=== PATIENT | female | born 1965 | race Caucasian/White ===

== ENCOUNTER 2016-08-12 16:33 | Emergency (ER) | payer BC, OTHER ==
--- NOTE | 2016-08-12 17:09 | EDM.PDOC ---
ED HPI Skin/Rash - General Chief Complaint: Skin Complaint Stated Complaint: BITE OR INFECTION LT LEG Time Seen by Provider: 08/12/16 16:50 Source: Reports: Patient History Limitations: Reports: No limitations - History of Present Illness INITIAL COMMENTS - FREE TEXT/NARRATIVE: HISTORY AND PHYSICAL: History of present illness: Patient is a 50-year-old female presents to the emergency department concerned about possible spider bite. A few days ago she developed a small pustule on the left inner thigh that she thought was from rubbing on her pants and she thought that it went away but just medial to that she developed another little sore but now has progressed and had increased redness and tenderness. She is worried because she states she had a friend that was bitten by a brown recluse and had to have skin cut out etc. She has not had fevers or chills. She denies nausea or vomiting. She denies any specific injury to the skin. No pain down her legs. Her symptoms are very focal and localized to the left inner thigh. Review of systems: As per history of present illness and below otherwise all systems reviewed and negative. Past medical history: As per history of present illness and as reviewed below otherwise noncontributory. Surgical history: As per history of present illness and as reviewed below otherwise noncontributory. Social history: No reported history of drug or alcohol abuse. Family history: As per history of present illness and as reviewed below otherwise noncontributory. Physical exam: HEENT: Atraumatic, normocephalic. Lungs: Clear to auscultation, respiratory distress. Heart: Regular rate and rhythm. Abdomen: Soft, nondistended, nontender. Extremities: Normal range of motion of the lower extremities. On the left inner thigh she has a small lesion with a little bit of induration around this and then a much larger area of cellulitis surrounding this. The whole diameter is approximately 8-10 cm. There is no abscess formation, no drainage. It is warm and tender to the touch. Straight seen. Neuro: Awake, alert, oriented. Therapeutics: Patient given a prescription for Bactrim Impression: Cellulitis Plan: Wound was demarcated and patient was instructed to return after 48 hours if her symptoms are not improving or worsening. Otherwise she was instructed to continue taking antibiotics and following up with primary care as needed. She does not seem to have any questions or concerns about when and where to followup and what to watch for. Definitive disposition and diagnosis as appropriate pending reevaluation and review of above. - Related Data Allergies Allergy/AdvReac Type Severity Reaction Status Date / Time Untyped Platelets Allergy Anaphylactic Uncoded 08/12/16 16:49 Shock Home Meds: Ambulatory Orders Medication Instructions Recorded Confirmed . 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 ED EXAM, SKIN/RASH Exam: See Below (See HPI) Course - Vital Signs Last Recorded V/S: Last Vital Signs Temp 37.6 C 08/12/16 16:50 Pulse 108 H 08/12/16 16:50 Resp 18 08/12/16 16:50 BP 132/66 08/12/16 16:50 Pulse Ox 97 08/12/16 16:50 Departure - Departure Time of Disposition: 17:08 Disposition: Home, Self-Care 01 Condition: good Clinical Impression: Cellulitis Qualifiers: Site of cellulitis: extremity Site of cellulitis of extremity: lower extremity Laterality: left Qualified Code(s): L03.116 - Cellulitis of left lower limb Instructions: Cellulitis, Adult Referrals: PCP,None [Primary Care Provider] - Forms: ED Department Discharge Additional Instructions: The following information is given to patients seen in the emergency department who are being discharged to home. This information is to outline your options for follow-up care. We provide all patients seen in our emergency department with a follow-up referral. The need for follow-up, as well as the timing and circumstances, are variable depending upon the specifics of your emergency department visit. If you don't have a primary care physician on staff, we will provide you with a referral. We always advise you to contact your personal physician following an emergency department visit to inform them of the circumstance of the visit and for follow-up with them and/or the need for any referrals to a consulting specialist. The emergency department will also refer you to a specialist when appropriate. This referral assures that you have the opportunity for follow-up care with a specialist. All of these measure are taken in an effort to provide you with optimal care, which includes your follow-up. Under all circumstances we always encourage you to contact your private physician who remains a resource for coordinating your care. When calling for follow-up care, please make the office aware that this follow-up is from your recent emergency room visit. If for any reason you are refused follow-up, please contact the [facility] Emergency Department at and asked to speak to the emergency department charge nurse. Return to the ED in 48 hours if her symptoms are worsening or not improving, otherwise followup with your doctor as needed and continue antibiotic medication until completely gone.
== END 2016-08-12 17:27 | disposition home or self-care (01) ==
LOC: MW.ED 16:33
CPT/HCPCS: 99283

== ENCOUNTER 2016-08-18 09:28 | Inpatient (IN) | payer BC ==
[2016-08-18] MEDS ORDERED: Sodium Chloride 0.9% 1,000 ML IV ONE ×2 (09:44→11:03)
[2016-08-18] MEDS ORDERED: cefTRIAXone 1 GM in Premix Bag 1 BAG IV ONE (09:49)
--- NOTE | 2016-08-18 10:02 | EDM.PDOC ---
ED HPI Skin/Rash - General Chief Complaint: Fever Stated Complaint: LT LEG RED AND SOLLOWEN Time Seen by Provider: 08/18/16 09:35 - History of Present Illness INITIAL COMMENTS - FREE TEXT/NARRATIVE: History of present illness: [50-year-old female seen in ED last for left upper thigh cellulitis where she was prescribed bactrim. She started developing fevers, chills for last two days. She does not say if the cellulitis is improved or worsened. First few days she states it improved on bactrim but stayed the same. She has non productive cough, runny nose, myalgias headache. She does not have n/v/d, abdominal pain, She felt febrile last few days but last night with a temperature 103 degrees. ] Review of systems: As per history of present illness and below otherwise all systems reviewed and negative. Past medical history: As per history of present illness and as reviewed below otherwise noncontributory. Surgical history: As per history of present illness and as reviewed below otherwise noncontributory. Social history: No reported history of drug or alcohol abuse. Family history: As per history of present illness and as reviewed below otherwise noncontributory. Physical exam: General: Well developed, well nourished in NAD HEENT: Atraumatic, normocephalic, pupils reactive, negative for conjunctival pallor or scleral icterus, mucous membranes moist, throat clear, neck supple, nontender, trachea midline. Lungs: Clear to auscultation, breath sounds equal bilaterally, chest nontender. Heart: S1S2, tachycardia, negative for clicks, rubs, or JVD. Abdomen: Soft, nondistended, nontender. Negative for masses or hepatosplenomegaly. Negative for costovertebral tenderness. Pelvis: Stable nontender. Genitourinary: Deferred. Rectal: Deferred. Extremities: Atraumatic, negative for cords or calf pain. Neurovascular unremarkable. Neuro: Awake, alert, oriented. Cranial nerves II through XII unremarkable. Cerebellum unremarkable. Motor and sensory unremarkable throughout. Exam nonfocal. SKIN: Left upper thigh: Medial Aspect: 6X6 cm circular erythemtous macular rash without warmth, edema/ Diagnostics: CBC: leucopenia, CMP, lactate 0.8, blood cultures x2] Therapeutics: [Vancomycin] Impression: Fever Failed outpatient therapy for cellulitis vs viral illness mild reaction to vanomycin She had as slight rash on her anterior chest from vancomycin: decreased the infusion rate and i.v solumedrol and i.v benadryl given. Plan: [Admit to ICU for the antibiotics, CBC and IVF: Dr. Nugent accepted the patient.] Definitive disposition and diagnosis as appropriate pending reevaluation and review of above. 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) Other OB/BYN History: HELLP Social & Family History - Family History Family Medical History: Noncontributory - Tobacco Use Smoking Status *Q: Current Every Day Smoker Years of Tobacco use: 25 Packs/Tins Daily: 0.5 Second Hand Smoke Exposure: No - Recreational Drug Use Recreational Drug Use: No ED ROS GENERAL - Review of Systems Review Of Systems: See Below ED EXAM, SKIN/RASH Exam: See Below (See history of present illness) Course - Vital Signs Last Recorded V/S: Last Vital Signs Temp 101.8 F H 08/18/16 10:41 Pulse 106 H 08/18/16 10:41 Resp 16 08/18/16 10:41 BP 119/79 08/18/16 10:41 Pulse Ox 96 08/18/16 10:41 - Orders/Labs/Meds Orders: Active Orders 24 hr Category Date Time Status CULTURE BLOOD [BC] Stat Lab 08/18/16 09:53 Received CULTURE BLOOD [BC] Stat Lab 08/18/16 09:57 Received UA W/MICROSCOPIC [URIN] Stat Lab 08/18/16 11:24 Ordered Sodium Chloride 0.9% [Normal Saline] 1,000 ml Med 08/18/16 11:03 Active IV .Bolus Blood Culture x2 Reflex Set [OM.PC] Stat Oth 08/18/16 09:43 Ordered Medication Orders Sodium Chloride (Normal Saline) 1,000 mls @ 999 mls/hr IV .Bolus ONE Stop: 08/18/16 12:03 Labs: Laboratory Tests 08/18/16 08/18/16 08/18/16 Range/Units 09:53 09:53 09:53 WBC 2.32 L (4.0-11.0) K/uL RBC 4.98 (4.30-5.90) M/uL Hgb 14.8 (12.0-16.0) g/dL Hct 43.7 (36.0-46.0) % MCV 87.8 (80.0-98.0) fL MCH 29.7 (27.0-32.0) pg MCHC 33.9 (31.0-37.0) g/dL RDW Std Deviation 42.5 (28.0-62.0) fl RDW Coeff of Fern 13 (11.0-15.0) % Plt Count 159 (150-400) K/uL MPV 9.60 (7.40-12.00) fL Neut % (Auto) 75.8 (48.0-80.0) % Lymph % (Auto) 17.2 (16.0-40.0) % [place] % (Auto) 5.2 (0.0-15.0) % Eos % (Auto) 0.9 (0.0-7.0) % Baso % (Auto) 0.9 (0.0-1.5) % Neut # (Auto) 1.8 (1.4-5.7) K/uL Lymph # (Auto) 0.4 L (0.6-2.4) K/uL [place] # (Auto) 0.1 (0.0-0.8) K/uL Eos # (Auto) 0.0 (0.0-0.7) K/uL Baso # (Auto) 0.0 (0.0-0.1) K/uL Nucleated RBC % 0.0 /100WBC Nucleated RBCs # 0 K/uL Lactate 0.8 (0.20-2.00) mmol/L Sodium 135 L (136-146) mmol/L Potassium 3.9 (3.5-5.1) mmol/L Chloride 103 (98-110) mmol/L Carbon Dioxide 21 (21-31) mmol/L BUN 10 (6.0-23.0) mg/dL Creatinine 1.1 (0.6-1.5) mg/dL Est Cr Clr Drug Dosing 58.55 mL/min Estimated GFR (MDRD) 53.0 ml/min Glucose 95 (60-110) mg/dL Calcium 8.6 L (8.8-10.8) mg/dL Total Bilirubin 0.4 (0.1-1.5) mg/dL AST 33 (5-40) IU/L ALT 26 (8-54) IU/L Alkaline Phosphatase 54 (40-150) Total Protein 7.6 (6.0-8.0) g/dL Albumin 4.1 (3.5-5.0) g/dL Globulin 3.5 (2.0-3.5) g/dL Albumin/Globulin Ratio 1.2 L (1.3-2.8) Meds: Medications Generic Name Dose Route Start Last Admin Trade Name Freq PRN Reason Stop Dose Admin Sodium Chloride 1,000 mls @ 999 mls/hr 08/18/16 11:03 Normal Saline IV 08/18/16 12:03 .Bolus ONE Discontinued Medications Generic Name Dose Route Start Last Admin Trade Name Freq PRN Reason Stop Dose Admin Diphenhydramine HCl 25 mg 08/18/16 11:16 Benadryl IVPUSH 08/18/16 11:17 ONETIME ONE Sodium Chloride 1,000 mls @ 999 mls/hr 08/18/16 09:44 08/18/16 09:57 Normal Saline IV 08/18/16 10:44 999 mls/hr STAT ONE Administration Vancomycin HCl 1 gm/ Sodium 250 mls @ 250 mls/hr 08/18/16 09:51 08/18/16 10: 36 Chloride IV 08/18/16 10:50 250 mls/hr ONETIME ONE Administration Methylprednisolone Sodium Succinate 125 mg 08/18/16 11:16 Solu-Medrol IVPUSH 08/18/16 11:17 ONETIME ONE Departure - Departure Time of Disposition: 11:28 Disposition: Admitted As Inpatient 68 Condition: good Clinical Impression: Viral syndrome Cellulitis Qualifiers: Site of cellulitis: extremity Site of cellulitis of extremity: lower extremity Laterality: left Qualified Code(s): L03.116 - Cellulitis of left lower limb Forms: ED Department Discharge - My Orders Last 24 Hours: My Active Orders 08/18/16 09:43 Blood Culture x2 Reflex Set [OM.PC] Stat 08/18/16 09:53 CULTURE BLOOD [BC] Stat 08/18/16 09:57 CULTURE BLOOD [BC] Stat 08/18/16 11:03 Sodium Chloride 0.9% [Normal Saline] 1,000 ml IV .Bolus 08/18/16 11:24 UA W/MICROSCOPIC [URIN] Stat - Assessment/Plan Last 24 Hours: My Active Orders 08/18/16 09:43 Blood Culture x2 Reflex Set [OM.PC] Stat 08/18/16 09:53 CULTURE BLOOD [BC] Stat 08/18/16 09:57 CULTURE BLOOD [BC] Stat 08/18/16 11:03 Sodium Chloride 0.9% [Normal Saline] 1,000 ml IV .Bolus 08/18/16 11:24 UA W/MICROSCOPIC [URIN] Stat
--- NOTE | 2016-08-18 11:02 | CR ---
EXAMINATION: Left femur HISTORY: Cellulitis COMPARISON: None TECHNIQUE: AP and lateral views FINDINGS: There is no acute osseous abnormality, dislocation, or fracture identified. Bone mineraliz ation and joint spaces appear normal. No soft tissue swelling or joint effusion. Mild degenerative c hanges are noted within the patellofemoral compartment. No subcutaneous gas. IMPRESSION: No acute osseous abnormality identified.
[2016-08-18] MEDS ORDERED: diphenhydrAMINE 50 MG/ML SDV IVPUSH ONE (11:16)
[2016-08-18] MEDS ORDERED: methylPREDNISolone Sodium Succinate 125 MG/2 ML SDV IVPUSH ONE (11:16)
[2016-08-18] MEDS ORDERED: Acetaminophen 500 MG Tab PO ONE (11:46)
--- NOTE | 2016-08-18 13:21 | PCM.HP ---
H&P History of Present Illness - General Date of Service: 08/18/16 Admit Problem/Dx: Admission Diagnosis/Problem Admission Diagnosis/Problem Cellulitis Source of Information: Patient, Provider - History of Present Illness Initial Comments - Free Text/Narative: She presented to the emergency department today after several days of an erythematous area on her medial upper left by. She has had fever for about 2 days. It seems to be progressive. He has had a minimal cough. 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: , 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) Other OB/BYN History: HELLP Musculoskeletal History: Reports: Fracture Neurological History: Denies: Alzheimers disease, CVA Psychiatric History: Reports: Anxiety, Depression Endocrine/Metabolic History: Denies: Diabetes, type II Hematologic History: Reports: Blood transfusion(s) Oncologic (Cancer) History: Reports: None Dermatologic History: Reports: Cellulitis - Infectious Disease History Infectious Disease History: Reports: Chicken pox, Influenza - Past Surgical History Cardiovascular Surgical History: Reports: None Respiratory Surgical History: Reports: None GI Surgical History: Reports: None Female Surgical History: Reports: Tubal ligation Musculoskeletal Surgical History: Reports: None Dermatological Surgical History: Reports: None Social & Family History - Family History Family Medical History: Noncontributory HEENT: Reports: Cataract, Impaired vision Cardiac: Reports: Heart failure Respiratory: Reports: 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) Other Respiratory Family Hisory: narcolepsy GI: Reports: Celiac disease : Reports: 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) Other Family History: unknown disease Endocrine/Metabolic: Reports: Diabetes, type II Oncologic: Reports: Lung - Tobacco Use Smoking Status *Q: Current Every Day Smoker Years of Tobacco use: 20 Packs/Tins Daily: 1 Used Tobacco, but Quit: No Second Hand Smoke Exposure: Yes - Caffeine Use Caffeine Use: Reports: Coffee, Soda - Recreational Drug Use Recreational Drug Use: No H&P Review of Systems - Review of Systems: Review Of Systems: See Below General: Reports: fever Pulmonary: Reports: Cough. Denies: Shortness of Breath, Wheezing Cardiovascular: Denies: chest pain, orthopnea Gastrointestinal: Reports: Nausea. Denies: Abdominal pain, Hematemesis, Hematochezia Genitourinary: Denies: dysuria, hematuria Neurological: Denies: Confusion (myalgias) Exam - Exam Exam: See Below (Left medial upper thigh with diffuse area of erythema measuring about 15 x 25 cm. The area is slightly warm. There is no induration or fluctuance.) - Vital Signs Vital Signs: Last Vital Signs Temp 104 F H 08/18/16 12:16 Pulse 104 H 08/18/16 12:15 Resp 18 08/18/16 12:15 BP 116/60 08/18/16 12:15 Pulse Ox 95 08/18/16 12:15 Weight: 82.5 kg - Exam General: alert, oriented HEENT: Conjunctiva clear, EOMI Neck: supple, trachea midline Lungs: Clear to auscultation, Normal respiratory effort Cardiovascular: regular rate, regular rhythm Abdomen: soft. No: tenderness Rectal (Female) Exam: Deferred Neurological: cranial nerves intact, normal speech Neuro Extensive - Motor, Sensory, Reflexes: CN II-XII intact Psychiatric: alert. No: agitated - Patient Data Result Diagrams: 08/18/16 09:53 08/18/16 09:53 *Q Meaningful Use (ADM) - VTE *Q VTE Criteria *Q: - Stroke *Q Stroke Criteria *Q: - AMI *Q AMI Criteria *Q: - Problem List (1) Sepsis SNOMED Code(s): 83561569 ICD Code: A41.9 - SEPSIS, UNSPECIFIED ORGANISM Status: Acute Current Visit: Yes (2) Cellulitis SNOMED Code(s): 347355525 ICD Code: L03.90 - CELLULITIS, UNSPECIFIED Status: Acute Current Visit: Yes Qualifiers: Site of cellulitis: extremity Site of cellulitis of extremity: lower extremity Laterality: left Qualified Code(s): L03.116 - Cellulitis of left lower limb Problem List Initiated/Reviewed/Updated: Yes Orders Last 24hrs: Active Orders 24 hr Category Date Time Status Admission Status [Patient Status] [ADT] Routine ADT 08/18/16 12:04 Active Regular Diet [DIET] Diet 08/18/16 Lunch Active LACTIC ACID,WHOLE BLOOD [BG] Routine Lab 08/18/16 15:30 Ordered Assessment/Plan Comment:: Her leukopenia may be related to infection. Must consider possibility of sepsis. She has no reported recent tick exposure .While in the emergency room she developed diffuse erythema it after vancomycin infusion. See orders. In light of her tachycardia will monitor in intensive care unit.
[2016-08-18] MEDS ORDERED: Morphine 4 MG/ML Syringe IVPUSH PRN (13:25)
[2016-08-18] MEDS ORDERED: Ondansetron 4 MG Tab.DIS PO PRN (13:25)
[2016-08-18] MEDS ORDERED: Acetaminophen 325 MG Tab PO PRN (13:25)
[2016-08-18] MEDS: Linezolid 600 MG in Premix Bag 1 BAG IV SCH (13:49)
[2016-08-18] MEDS: Piperacillin/Tazobactam 3.375 GM in Sodium Chloride 0.9% 50 ML IV SCH ×2 (14:45→21:20)
--- NOTE | 2016-08-18 16:15 | CR ---
EXAM DATE: 08/18/16 PATIENT'S AGE: 50 Patient: OLESYA ANG Facility: [place], [place] Site . Site : [id number] Study: XRay Chest [id number]/30/2017 2:15:59 PM Ordering Physician: Jovanna Clinton Final Report: INDICATION: COUGH TECHNIQUE: Chest 2 views. COMPARISON: None. FINDINGS: Cardiovascular and mediastinum: Heart size and vasculature are normal in caliber and appearance. Mediastinum is within normal limits. Lungs and pleural spaces: Lungs are clear. No sign of infiltrate or mass. No sign of pleural effusion. No pneumothorax. Bones and soft tissues: No significant findings. IMPRESSION: Unremarkable chest. Dictated by: Chris Antony MD @ 08/18/2016 14:34:22 (Electronic Signature) Report Signed by Proxy and Original Signed Document filed in the Medical Record. [facility]
[2016-08-18] MEDS: Calcium Carbonate 500 MG Tab.Chew PO PRN ×2 (16:46→23:29)
[2016-08-19] MEDS: Linezolid 600 MG in Premix Bag 1 BAG IV SCH ×2 (02:07→14:04)
[2016-08-19] MEDS: Piperacillin/Tazobactam 3.375 GM in Sodium Chloride 0.9% 50 ML IV SCH ×4 (03:37→20:16)
[2016-08-19 05:47] LABS: CHLORIDE,CL 112 mmol/L (98-110); SODIUM,NA 140 mmol/L (136-146)
[2016-08-19] MEDS: Enoxaparin 40 MG/0.4 ML Syringe SUBCUT SCH (09:26)
[2016-08-19] MEDS: Nicotine 7 MG/24 Hr Patch TRDERM SCH (11:38)
--- NOTE | 2016-08-19 12:34 | PCM.PN ---
- General Info Date of Service: 08/19/16 Admission Dx/Problem (Free Text): Admission Diagnosis/Problem Admission Diagnosis/Problem Cellulitis Functional Status: Reports: pain controlled, tolerating diet, ambulating, urinating - Review of Systems General: Denies: Fever, Weakness, Fatigue HEENT: Denies: headaches, visual changes Pulmonary: Denies: shortness of breath, wheezing Cardiovascular: Denies: Chest Pain, Palpitations, Edema Gastrointestinal: Denies: Abdominal pain, Constipation, Nausea, Vomiting Genitourinary: Denies: dysuria, hematuria Musculoskeletal: Reports: leg pain. Denies: neck pain Skin: Denies: cyanosis Neurological: Denies: Confusion, Dizziness Psychiatric: Denies: confusion - Patient Data Vitals - most recent: Last Vital Signs Temp 36.9 C 08/19/16 11:00 Pulse 99 08/19/16 11:00 Resp 20 08/19/16 11:00 BP 103/55 L 08/19/16 11:00 Pulse Ox 96 08/19/16 11:00 Weight - most recent: 80.6 kg I&O - last 24 hours: Intake & Output 08/18/16 08/19/16 08/19/16 22:59 06:59 14:59 Intake Total 537 500 410 Output Total 2000 1600 200 Balance -1463 -1100 210 Lab Results last 24 hrs: Laboratory Results - last 24 hr 08/19/16 08/19/16 Range/Units 04:23 04:23 WBC 1.92 L (4.0-11.0) K/uL RBC 4.57 (4.30-5.90) M/uL Hgb 13.4 (12.0-16.0) g/dL Hct 39.8 (36.0-46.0) % MCV 87.1 (80.0-98.0) fL MCH 29.3 (27.0-32.0) pg MCHC 33.7 (31.0-37.0) g/dL RDW Std Deviation 42.8 (28.0-62.0) fl RDW Coeff of Fern 13 (11.0-15.0) % Plt Count 138 L (150-400) K/uL MPV 9.80 (7.40-12.00) fL Neut % (Auto) 56.8 (48.0-80.0) % Lymph % (Auto) 29.7 (16.0-40.0) % [place] % (Auto) 13.0 (0.0-15.0) % Eos % (Auto) 0.0 (0.0-7.0) % Baso % (Auto) 0.5 (0.0-1.5) % Neut # (Auto) 1.1 L (1.4-5.7) K/uL Lymph # (Auto) 0.6 (0.6-2.4) K/uL [place] # (Auto) 0.3 (0.0-0.8) K/uL Eos # (Auto) 0.0 (0.0-0.7) K/uL Baso # (Auto) 0.0 (0.0-0.1) K/uL Nucleated RBC % 0.0 /100WBC Nucleated RBCs # 0 K/uL Sodium 140 (136-146) mmol/L Potassium 3.8 (3.5-5.1) mmol/L Chloride 112 H (98-110) mmol/L Carbon Dioxide 20 L (21-31) mmol/L BUN 8 (6.0-23.0) mg/dL Creatinine 0.7 (0.6-1.5) mg/dL Est Cr Clr Drug Dosing 92.51 mL/min Estimated GFR (MDRD) > 60.0 ml/min Glucose 133 H (60-110) mg/dL Calcium 8.0 L (8.8-10.8) mg/dL Magnesium 1.7 (1.5-2.3) mEq/L Med Orders - Current: Current Medications Acetaminophen (Tylenol) 650 mg PO Q4H PRN PRN Reason: Pain (Mild 1-3)/fever Calcium Carbonate/Glycine (Tums) 1,000 mg PO Q2HR PRN PRN Reason: Indigestion Last Admin: 08/18/16 23:29 Dose: 1,000 mg Enoxaparin Sodium (Lovenox) 40 mg SUBCUT DAILY [facility] Last Admin: 08/19/16 09:26 Dose: 40 mg Linezolid 600 mg/ Premix 300 mls @ 300 mls/hr IV Q12H [facility] Last Admin: 08/19/16 02:07 Dose: 300 mls/hr Piperacillin Sod/Tazobactam (Sod 3.375 gm/ Sodium Chloride) 50 mls @ 100 mls/ hr IV Q6H [facility] Last Admin: 08/19/16 09:13 Dose: 100 mls/hr Morphine Sulfate (Morphine) 4 mg IVPUSH Q2H PRN PRN Reason: Pain (severe 7-10) Stop: 08/19/16 13:26 Nicotine (Habitrol) 7 mg TRDERM DAILY [facility] Last Admin: 08/19/16 11:38 Dose: 7 mg Ondansetron HCl (Zofran Odt) 4 mg PO Q4H PRN PRN Reason: nausea, able to take PO Discontinued Medications Acetaminophen (Tylenol Extra Strength) 1,000 mg PO ONETIME ONE Stop: 08/18/16 11:47 Last Admin: 08/18/16 12:16 Dose: 1,000 mg Diphenhydramine HCl (Benadryl) 25 mg IVPUSH ONETIME ONE Stop: 08/18/16 11:17 Last Admin: 08/18/16 11:36 Dose: 25 mg Sodium Chloride (Normal Saline) 1,000 mls @ 999 mls/hr IV STAT ONE Stop: 08/18/16 10:44 Last Admin: 08/18/16 09:57 Dose: 999 mls/hr Vancomycin HCl 1 gm/ Sodium (Chloride) 250 mls @ 250 mls/hr IV ONETIME ONE Stop: 08/18/16 10:50 Last Admin: 08/18/16 10:36 Dose: 250 mls/hr Sodium Chloride (Normal Saline) 1,000 mls @ 999 mls/hr IV .Bolus ONE Stop: 08/18/16 12:03 Last Admin: 08/18/16 11:35 Dose: 999 mls/hr Methylprednisolone Sodium Succinate (Solu-Medrol) 125 mg IVPUSH ONETIME ONE Stop: 08/18/16 11:17 Last Admin: 08/18/16 11:40 Dose: 125 mg - Exam Quality Assessment: DVT prophylaxis General: alert, oriented, cooperative, no acute distress HEENT: Pupils equal, Pupils reactive, EOMI, Mucous membr. moist/pink Neck: supple, trachea midline Lungs: Clear to auscultation, Normal respiratory effort Cardiovascular: Regular Rate, Regular Rhythm Abdomen: bowel sounds present, soft, no tenderness, no distension Back Exam: full range of motion Extremities: no edema, no tenderness/swelling, no calf tenderness, other (Right inner thigh cellulites. Erythema improved no extension past demarcation mildly tender no induration) Peripheral Pulses: 2+: radial (L), radial (R), posterior tibial (L), posterior tibial (R), dorsalis pedis (L), dorsalis pedis (R) Skin: warm, dry, intact Wound/Incisions: healing well, erythema Neurological: no new focal deficit Psy/Mental Status: alert, normal affect, normal mood - Problem List & Annotations (1) Cellulitis SNOMED Code(s): 498253740 Code(s): L03.90 - CELLULITIS, UNSPECIFIED Status: Acute Priority: High Current Visit: Yes Qualifiers: Site of cellulitis: extremity Site of cellulitis of extremity: lower extremity Laterality: left Qualified Code(s): L03.116 - Cellulitis of left lower limb (2) Sepsis SNOMED Code(s): 06853632 Code(s): A41.9 - SEPSIS, UNSPECIFIED ORGANISM Status: Resolved Priority: High Current Visit: Yes Qualifiers: Sepsis type: sepsis due to unspecified organism Qualified Code(s): A41.9 - Sepsis, unspecified organism - Problem List Review Problem List Initiated/Reviewed/Updated: Yes - My Orders Last 24 Hours: My Active Orders 08/19/16 10:24 Transfer Patient (Change bed) [ADT] Routine 08/19/16 11:00 Nicotine [Habitrol] 7 mg TRDERM DAILY - Plan Plan:: 50 yo female admitted 08/18/16 for sepisis and cellulites with no significant pmh. Sepsis: Leukopenia most likely related to infection. Patient did have erythema with Vanco in ED and this should be listed on her allergies. Cellulites improving no fever overnight. Will cont. Linzolid and Zosyn Day 2. Patient has stabilized no tachycardia will transfer to floor today. VTE: Lovenox 40mg subq Dispo: 1-2 days.
[2016-08-19] MEDS ORDERED: diphenhydrAMINE 50 MG/ML SDV IVPUSH ONE (13:15)
[2016-08-19] MEDS ORDERED: diphenhydrAMINE 50 MG/ML SDV IVPUSH PRN (13:58)
--- NOTE | 2016-08-19 13:58 | PCM.SN ---
- Free Text/Narrative Note: Called by nursing that patient had developed redness to chest, face, and some extension to arms and legs. Last Zosyn was at 9 am approximately 4.5 hrs from reaction. Patient had only received nicoderm patch most recently. Talked with pharmacy and they thought it may be a delayed penicillin rash but would be rare. Suggested pretreat with benadryl before next Zosyn.
[2016-08-19] MEDS: Calcium Carbonate 500 MG Tab.Chew PO PRN ×2 (16:46→20:16)
[2016-08-19] MEDS: diphenhydrAMINE 50 MG/ML SDV IVPUSH PRN (20:16)
[2016-08-20] MEDS: Linezolid 600 MG in Premix Bag 1 BAG IV SCH ×2 (01:20→14:23)
[2016-08-20] MEDS: diphenhydrAMINE 50 MG/ML SDV IVPUSH PRN ×4 (02:29→21:05)
[2016-08-20] MEDS: Piperacillin/Tazobactam 3.375 GM in Sodium Chloride 0.9% 50 ML IV SCH ×4 (02:29→21:09)
[2016-08-20 05:10] LABS: CHLORIDE,CL 108 mmol/L (98-110); SODIUM,NA 142 mmol/L (136-146)
[2016-08-20] MEDS: Enoxaparin 40 MG/0.4 ML Syringe SUBCUT SCH (10:41)
[2016-08-20] MEDS: Nicotine 7 MG/24 Hr Patch TRDERM SCH (10:43)
--- NOTE | 2016-08-20 11:45 | PCM.PN ---
- General Info Date of Service: 08/20/16 Functional Status: Reports: pain controlled - Review of Systems General: Reports: Other (pruritus) HEENT: Reports: no symptoms Pulmonary: Reports: no symptoms Cardiovascular: Reports: No Symptoms Gastrointestinal: Reports: Diarrhea (started this morning) Genitourinary: Reports: no symptoms Musculoskeletal: Reports: arm pain (iv site l antecubital fossa) Skin: Reports: pruritis Neurological: Reports: Dizziness (blames benadryl) Psychiatric: Reports: no symptoms - Patient Data Vitals - most recent: Last Vital Signs Temp 36.8 C 08/20/16 08:00 Pulse 82 08/20/16 08:00 Resp 16 08/20/16 08:00 BP 100/55 L 08/20/16 08:00 Pulse Ox 95 08/20/16 08:00 Weight - most recent: 80.6 kg I&O - last 24 hours: Intake & Output 08/19/16 08/20/16 08/20/16 22:59 06:59 14:59 Intake Total 640 600 Output Total 900 660 Balance -260 -60 Lab Results last 24 hrs: Laboratory Results - last 24 hr 08/20/16 08/20/16 Range/Units 04:30 04:30 WBC 3.42 L (4.0-11.0) K/uL RBC 4.52 (4.30-5.90) M/uL Hgb 13.1 (12.0-16.0) g/dL Hct 40.0 (36.0-46.0) % MCV 88.5 (80.0-98.0) fL MCH 29.0 (27.0-32.0) pg MCHC 32.8 (31.0-37.0) g/dL RDW Std Deviation 44.6 (28.0-62.0) fl RDW Coeff of Fern 14 (11.0-15.0) % Plt Count 144 L (150-400) K/uL MPV 9.70 (7.40-12.00) fL Neut % (Auto) 39.5 L (48.0-80.0) % Lymph % (Auto) 44.7 H (16.0-40.0) % [place] % (Auto) 11.1 (0.0-15.0) % Eos % (Auto) 3.8 (0.0-7.0) % Baso % (Auto) 0.9 (0.0-1.5) % Neut # (Auto) 1.4 (1.4-5.7) K/uL Lymph # (Auto) 1.5 (0.6-2.4) K/uL [place] # (Auto) 0.4 (0.0-0.8) K/uL Eos # (Auto) 0.1 (0.0-0.7) K/uL Baso # (Auto) 0.0 (0.0-0.1) K/uL Nucleated RBC % 0.0 /100WBC Nucleated RBCs # 0 K/uL Sodium 142 (136-146) mmol/L Potassium 4.1 (3.5-5.1) mmol/L Chloride 108 (98-110) mmol/L Carbon Dioxide 27 (21-31) mmol/L BUN 8 (6.0-23.0) mg/dL Creatinine 0.9 (0.6-1.5) mg/dL Est Cr Clr Drug Dosing 71.95 mL/min Estimated GFR (MDRD) > 60.0 ml/min Glucose 73 (60-110) mg/dL Calcium 8.3 L (8.8-10.8) mg/dL Med Orders - Current: Current Medications Acetaminophen (Tylenol) 650 mg PO Q4H PRN PRN Reason: Pain (Mild 1-3)/fever Calcium Carbonate/Glycine (Tums) 1,000 mg PO Q2HR PRN PRN Reason: Indigestion Last Admin: 08/19/16 20:16 Dose: 1,000 mg Diphenhydramine HCl (Benadryl) 25 mg IVPUSH Q6H PRN PRN Reason: Itching Last Admin: 08/20/16 10:42 Dose: 25 mg Enoxaparin Sodium (Lovenox) 40 mg SUBCUT DAILY [facility] Last Admin: 08/20/16 10:41 Dose: 40 mg Linezolid 600 mg/ Premix 300 mls @ 300 mls/hr IV Q12H [facility] Last Admin: 08/20/16 01:20 Dose: 300 mls/hr Piperacillin Sod/Tazobactam (Sod 3.375 gm/ Sodium Chloride) 50 mls @ 100 mls/ hr IV Q6H [facility] Last Admin: 08/20/16 10:20 Dose: 100 mls/hr Nicotine (Habitrol) 7 mg TRDERM DAILY [facility] Last Admin: 08/20/16 10:43 Dose: Not Given Ondansetron HCl (Zofran Odt) 4 mg PO Q4H PRN PRN Reason: nausea, able to take PO Discontinued Medications Acetaminophen (Tylenol Extra Strength) 1,000 mg PO ONETIME ONE Stop: 08/18/16 11:47 Last Admin: 08/18/16 12:16 Dose: 1,000 mg Diphenhydramine HCl (Benadryl) 25 mg IVPUSH ONETIME ONE Stop: 08/18/16 11:17 Last Admin: 08/18/16 11:36 Dose: 25 mg Diphenhydramine HCl (Benadryl) 25 mg IVPUSH ONETIME ONE Stop: 08/19/16 13:16 Last Admin: 08/19/16 13:29 Dose: 25 mg Diphenhydramine HCl (Benadryl) 25 mg IVPUSH Q8H PRN PRN Reason: Itching Last Admin: 08/19/16 15:35 Dose: 25 mg Sodium Chloride (Normal Saline) 1,000 mls @ 999 mls/hr IV STAT ONE Stop: 08/18/16 10:44 Last Admin: 08/18/16 09:57 Dose: 999 mls/hr Vancomycin HCl 1 gm/ Sodium (Chloride) 250 mls @ 250 mls/hr IV ONETIME ONE Stop: 08/18/16 10:50 Last Admin: 08/18/16 10:36 Dose: 250 mls/hr Sodium Chloride (Normal Saline) 1,000 mls @ 999 mls/hr IV .Bolus ONE Stop: 08/18/16 12:03 Last Admin: 08/18/16 11:35 Dose: 999 mls/hr Methylprednisolone Sodium Succinate (Solu-Medrol) 125 mg IVPUSH ONETIME ONE Stop: 08/18/16 11:17 Last Admin: 08/18/16 11:40 Dose: 125 mg Morphine Sulfate (Morphine) 4 mg IVPUSH Q2H PRN PRN Reason: Pain (severe 7-10) Stop: 08/19/16 13:26 - Exam General: alert HEENT: Other (not checked) Neck: trachea midline Lungs: Clear to auscultation, Normal respiratory effort Cardiovascular: Regular Rate, Regular Rhythm Abdomen: bowel sounds present (Female) Exam: Deferred Back Exam: normal inspection Extremities: no edema, other (area of cellulitis L medial thigh no larger, reported less angry looking Also tender indurated vein L antecubital fossa) Skin: warm, dry, intact, other (erythema cheeks, trunk ashish palms) Wound/Incisions: healing well Neurological: no new focal deficit Psy/Mental Status: alert, normal affect, normal mood Physical Findings Comments:: Phlebitis L antecubital vein - Problem List Review Problem List Initiated/Reviewed/Updated: Yes - My Orders Last 24 Hours: My Active Orders 08/20/16 11:38 CULTURE STOOL [RM] Routine - Assessment Assessment:: temperature normal, wbc down, cellulitis appears improved phlebitis at iv site diarrhea - Plan Plan:: 50 yo female admitted 08/18/16 for sepisis and cellulites with no significant pmh. Sepsis: Leukopenia most likely related to infection. Patient did have erythema with Vanco in ED and this should be listed on her allergies. Cellulites improving no fever overnight. Will cont. Linzolid and Zosyn Day 2. Patient has stabilized no tachycardia will transfer to floor today. VTE: Lovenox 40mg subq Dispo: 1-2 days. continue antibiotics, should help phlebitis as well will also treat with warm compress check stools
[2016-08-20] MEDS ORDERED: Calcium Carbonate 500 MG Tab.Chew PO ONE (16:21)
[2016-08-20] MEDS ORDERED: Nicotine 14 MG/24 Hr Patch TRDERM SCH (17:39)
[2016-08-20] MEDS ORDERED: Nicotine 14 MG/24 Hr Patch TRDERM ONE (17:45)
[2016-08-21] MEDS: Linezolid 600 MG in Premix Bag 1 BAG IV SCH (02:05)
[2016-08-21] MEDS: diphenhydrAMINE 50 MG/ML SDV IVPUSH PRN ×2 (03:10→09:59)
[2016-08-21] MEDS: Piperacillin/Tazobactam 3.375 GM in Sodium Chloride 0.9% 50 ML IV SCH ×2 (03:16→08:59)
[2016-08-21 05:33] LABS: CHLORIDE,CL 107 mmol/L (98-110); SODIUM,NA 140 mmol/L (136-146)
[2016-08-21] MEDS: Enoxaparin 40 MG/0.4 ML Syringe SUBCUT SCH (09:00)
[2016-08-21] MEDS ORDERED: Nicotine 14 MG/24 Hr Patch TRDERM SCH (09:00)
[2016-08-21 12:19] VITALS: BP 116/69
--- NOTE | 2016-08-21 12:48 | PCM.DCSUM1 ---
Discharge Summary - Hospital Course Free Text/Narrative:: Admitted with fever and leukocytosis area of cellulitis L medial thigh following failed out pt therapy with bactrim Initially given vancomycin held for red man syndrome then zosyn and zyvox on which she defervesced - Discharge Data Discharge Date: 08/21/16 Discharge Disposition: Home, Self-Care 01 Condition: Good - Patient Instructions Diet: Usual Diet as Tolerated Activity: As Tolerated Driving: May Drive Today Showering/Bathing: May Shower Wound/Incision, Other: continue warm compress to L arm - Discharge Plan Prescriptions/Med Rec: Cefadroxil [Duricef] 500 mg PO Q8HR #21 cap Nicotine [Habitrol] 14 mg TRDERM DAILY 30 Days Home Medications: Home Meds Cefadroxil [Duricef] 500 mg PO Q8HR #21 cap 08/21/16 [Rx] Nicotine [Habitrol] 14 mg TRDERM DAILY 30 Days 08/21/16 [Rx] Patient Handouts: Cellulitis, Adult, [id number], Cefadroxil tablets or capsules, Nicotine skin patches Forms: ED Department Discharge - Discharge Summary/Plan Comment DC Time >30 min.: No - General Info Date of Service: 08/21/16 Functional Status: Reports: pain controlled - Review of Systems General: Reports: No Symptoms HEENT: Reports: no symptoms Pulmonary: Reports: no symptoms Cardiovascular: Reports: No Symptoms Gastrointestinal: Reports: No symptoms Genitourinary: Reports: no symptoms Musculoskeletal: Reports: no symptoms Skin: Reports: no symptoms Neurological: Reports: No Symptoms Psychiatric: Reports: no symptoms - Patient Data Vitals - Most Recent: Last Vital Signs Temp 37.2 C 08/21/16 12:00 Pulse 83 08/21/16 12:00 Resp 14 08/21/16 12:00 BP 116/69 08/21/16 12:00 Pulse Ox 96 08/21/16 12:00 Weight - Most Recent: 80.6 kg I&O - Last 24 hours: Intake & Output 08/20/16 08/21/16 08/21/16 22:59 06:59 14:59 Intake Total 1210 986 50 Output Total 800 1100 Balance 410 -114 50 Lab Results - Last 24 hrs: Laboratory Results - last 24 hr 08/21/16 08/21/16 Range/Units 05:05 05:05 WBC 3.78 L (4.0-11.0) K/uL RBC 4.52 (4.30-5.90) M/uL Hgb 13.2 (12.0-16.0) g/dL Hct 40.0 (36.0-46.0) % MCV 88.5 (80.0-98.0) fL MCH 29.2 (27.0-32.0) pg MCHC 33.0 (31.0-37.0) g/dL RDW Std Deviation 44.9 (28.0-62.0) fl RDW Coeff of Fern 14 (11.0-15.0) % Plt Count 142 L (150-400) K/uL MPV 9.70 (7.40-12.00) fL Neut % (Auto) 31.8 L (48.0-80.0) % Lymph % (Auto) 53.7 H (16.0-40.0) % [place] % (Auto) 10.8 (0.0-15.0) % Eos % (Auto) 2.9 (0.0-7.0) % Baso % (Auto) 0.8 (0.0-1.5) % Neut # (Auto) 1.2 L (1.4-5.7) K/uL Lymph # (Auto) 2.0 (0.6-2.4) K/uL [place] # (Auto) 0.4 (0.0-0.8) K/uL Eos # (Auto) 0.1 (0.0-0.7) K/uL Baso # (Auto) 0.0 (0.0-0.1) K/uL Nucleated RBC % 0.0 /100WBC Nucleated RBCs # 0 K/uL Sodium 140 (136-146) mmol/L Potassium 4.3 (3.5-5.1) mmol/L Chloride 107 (98-110) mmol/L Carbon Dioxide 26 (21-31) mmol/L BUN 8 (6.0-23.0) mg/dL Creatinine 0.9 (0.6-1.5) mg/dL Est Cr Clr Drug Dosing 71.95 mL/min Estimated GFR (MDRD) > 60.0 ml/min Glucose 76 (60-110) mg/dL Calcium 8.6 L (8.8-10.8) mg/dL [facility]E Results - Last 24 hrs: Microbiology 08/20/16 20:00 Clostridium difficile Toxin A&B (M) - Final Stool / Feces Negative for C.Diff Toxin/AG Med Orders - Current: Current Medications Acetaminophen (Tylenol) 650 mg PO Q4H PRN PRN Reason: Pain (Mild 1-3)/fever Calcium Carbonate/Glycine (Tums) 1,000 mg PO Q2HR PRN PRN Reason: Indigestion Last Admin: 08/19/16 20:16 Dose: 1,000 mg Cefadroxil (Duricef) 500 mg PO Q8HR [facility] Diphenhydramine HCl (Benadryl) 25 mg IVPUSH Q6H PRN PRN Reason: Itching Last Admin: 08/21/16 09:59 Dose: 25 mg Enoxaparin Sodium (Lovenox) 40 mg SUBCUT DAILY [facility] Last Admin: 08/21/16 09:00 Dose: 40 mg Linezolid 600 mg/ Premix 300 mls @ 300 mls/hr IV Q12H [facility] Last Admin: 08/21/16 02:05 Dose: 300 mls/hr Piperacillin Sod/Tazobactam (Sod 3.375 gm/ Sodium Chloride) 50 mls @ 100 mls/ hr IV Q6H [facility] Last Admin: 08/21/16 08:59 Dose: 100 mls/hr Nicotine (Habitrol) 14 mg TRDERM DAILY [facility] Last Admin: 08/21/16 08:59 Dose: 14 mg Ondansetron HCl (Zofran Odt) 4 mg PO Q4H PRN PRN Reason: nausea, able to take PO Discontinued Medications Acetaminophen (Tylenol Extra Strength) 1,000 mg PO ONETIME ONE Stop: 08/18/16 11:47 Last Admin: 08/18/16 12:16 Dose: 1,000 mg Calcium Carbonate/Glycine (Tums) 1,000 mg PO ONETIME ONE Stop: 08/20/16 16:22 Last Admin: 08/20/16 16:57 Dose: 1,000 mg Diphenhydramine HCl (Benadryl) 25 mg IVPUSH ONETIME ONE Stop: 08/18/16 11:17 Last Admin: 08/18/16 11:36 Dose: 25 mg Diphenhydramine HCl (Benadryl) 25 mg IVPUSH ONETIME ONE Stop: 08/19/16 13:16 Last Admin: 08/19/16 13:29 Dose: 25 mg Diphenhydramine HCl (Benadryl) 25 mg IVPUSH Q8H PRN PRN Reason: Itching Last Admin: 08/19/16 15:35 Dose: 25 mg Sodium Chloride (Normal Saline) 1,000 mls @ 999 mls/hr IV STAT ONE Stop: 08/18/16 10:44 Last Admin: 08/18/16 09:57 Dose: 999 mls/hr Vancomycin HCl 1 gm/ Sodium (Chloride) 250 mls @ 250 mls/hr IV ONETIME ONE Stop: 08/18/16 10:50 Last Admin: 08/18/16 10:36 Dose: 250 mls/hr Sodium Chloride (Normal Saline) 1,000 mls @ 999 mls/hr IV .Bolus ONE Stop: 08/18/16 12:03 Last Admin: 08/18/16 11:35 Dose: 999 mls/hr Methylprednisolone Sodium Succinate (Solu-Medrol) 125 mg IVPUSH ONETIME ONE Stop: 08/18/16 11:17 Last Admin: 08/18/16 11:40 Dose: 125 mg Morphine Sulfate (Morphine) 4 mg IVPUSH Q2H PRN PRN Reason: Pain (severe 7-10) Stop: 08/19/16 13:26 Nicotine (Habitrol) 7 mg TRDERM DAILY [facility] Last Admin: 08/20/16 10:43 Dose: Not Given Nicotine (Habitrol) 14 mg TRDERM DAILY [facility] Nicotine (Habitrol) 14 mg TRDERM ONETIME ONE Stop: 08/20/16 17:46 Last Admin: 08/20/16 17:48 Dose: 14 mg - Exam General: Reports: alert HEENT: Reports: Pupils equal Neck: Reports: trachea midline Lungs: Reports: Clear to auscultation Cardiovascular: Reports: Regular Rate Abdomen: Reports: soft (Female) Exam: Deferred Rectal (Female) Exam: Deferred Back Exam: Reports: normal inspection Extremities: Reports: no edema Skin: Reports: warm, other (minimal residual erythema l medial thigh) Wound/Incisions: Reports: healing well Neurological: Reports: no new focal deficit Psy/Mental Status: Reports: alert *Q Meaningful Use (DIS) - VTE *Q VTE Criteria *Q: - Stroke *Q Stroke Criteria *Q: - AMI *Q AMI Criteria *Q:
[2016-08-21] MEDS ORDERED: Cefadroxil 500 MG Cap PO SCH (14:00)
== END 2016-08-21 13:20 | disposition home or self-care (01) | DRG 720 ==
LOC: MW.ED 09:28 → MW.ICU 11:51 → MW.MS 08-19 16:00
PROVIDERS: ADMIT Family Medicine; ATTEND Family Medicine
DX: A41.9 Sepsis, unspecified organism (principal); L03.116 Cellulitis of left lower limb; R50.9 Fever, unspecified; D72.829 Elevated white blood cell count, unspecified; R00.0 Tachycardia, unspecified; R21 Rash and other nonspecific skin eruption; I49.9 Cardiac arrhythmia, unspecified; G47.30 Sleep apnea, unspecified; K21.9 Gastro-esophageal reflux disease without esophagitis; F41.8 Other specified anxiety disorders; Z79.899 Other long term (current) drug therapy; F17.200 Nicotine dependence, unspecified, uncomplicated
CPT/HCPCS: 36415; 71020; 71020-26; 73552-26-LT; 73552-LT; 80048; 80053; 81001; 83605; 83735; 84703; 85025; 87040; 87324; 87804; 96361; 96365; 96366; 96375; 99285; 99285-25; A9270-GY; J1200; J1650; J2020; J2543; J2930; J3370; J7040; J7050

== ENCOUNTER → 2016-08-30 | Outpatient (CLI) | payer BC ==
[2016-08-30 14:45] LABS: CHLORIDE,CL 108 mmol/L (98-110); SODIUM,NA 140 mmol/L (136-146)
== END ==
LOC: MW.CHRC 13:39
PROVIDERS: ATTEND Family Medicine
DX: R00.0 Tachycardia, unspecified (principal); R19.7 Diarrhea, unspecified
CPT/HCPCS: 36415; 80048; 84439; 84443; 85025; 87046; 87899

== ENCOUNTER 2017-12-07 09:46 | Emergency (ER) | payer BC ==
[2017-12-07 10:12] VITALS: BP 112/55
--- NOTE | 2017-12-07 10:14 | EDM.PDOC ---
ED HPI GENERAL MEDICAL PROBLEM - General Chief Complaint: Skin Complaint Stated Complaint: FEVER/CELLULITIS Time Seen by Provider: 12/07/17 10:16 Source of Information: Reports: Patient History Limitations: Reports: No Limitations - History of Present Illness INITIAL COMMENTS - FREE TEXT/NARRATIVE: HISTORY AND PHYSICAL: History of present illness: Peggy is a 52-year-old female here with concerns of cellulitis. Patient was seen in the ED at [facility] yesterday and reports she was given shot of rocephin. She reports she was suppose to return to the ED today for more shots but was not feeling well and symptoms worsening so she came to the ED here this morning. She states she feels like she may be having a reaction to the antibiotic. She is also taking Bactrim. She is complaining of fevers, chills, and generalized body aches. She states that the swelling and redness around her eye are much better and the eye feels much better. Review of systems: As per history of present illness and below otherwise all systems reviewed and negative. Past medical history: As per history of present illness and as reviewed below otherwise noncontributory. Surgical history: As per history of present illness and as reviewed below otherwise noncontributory. Social history: No reported history of drug or alcohol abuse. Family history: As per history of present illness and as reviewed below otherwise noncontributory. Physical exam: General: Patient sitting comfortably in no acute distress HEENT: There is slight erythema to the right upper lid. No pain with EOM. Atraumatic, normocephalic, pupils reactive, negative for conjunctival pallor or scleral icterus, mucous membranes moist, throat clear, neck supple, nontender, trachea midline. Lungs: Clear to auscultation, breath sounds equal bilaterally, chest nontender. Heart: S1S2, regular, negative for clicks, rubs, or JVD. Extremities: Atraumatic, negative for cords or calf pain. Neurovascular unremarkable. Neuro: Awake, alert, oriented. Cranial nerves II through XII unremarkable. Cerebellum unremarkable. Motor and sensory unremarkable throughout. Exam nonfocal. Notes: Patient offered admission for IV antibiotics which she declined/ Diagnostics: CBC, CMP, UA, Blood culture x 2 Therapeutics: 1L Normal Saline Impression: Cellulitis Plan: Cellulitis mild and appears to be improving. #1 Take antibiotic as directed #2 Follow up with primary care provider #3 Return to ED as needed as discussed Definitive disposition and diagnosis as appropriate pending reevaluation and review of above. Generalized Pain Score (Numeric/FACES): 7 - Related Data Allergies Allergy/AdvReac Type Severity Reaction Status Date / Time vancomycin AdvReac Mild Redness Verified 12/07/17 10:06 Untyped Platelets Allergy Anaphylactic Uncoded 12/07/17 10:06 Shock Home Meds: Home Meds Lactobacillus Rhamnosus GG [Culturelle] 1 tab PO DAILY 12/07/17 [History] Levofloxacin 750 mg PO DAILY 10 Days #10 tablet 12/07/17 [Rx] Mupirocin Oint [Bactroban Oint] 1 gm TP DAILY 12/07/17 [History] Sulfamethoxazole/Trimethoprim [Bactrim Ds Tablet] 1 tab PO DAILY 12/07/17 [ History] cefTRIAXone [Rocephin] 2 gm IV DAILY 12/07/17 [History] Past Medical History Cardiovascular History: Reports: Other (See Below) Other Cardiovascular History: irregular heart beats at times Respiratory History: Reports: Sleep Apnea Gastrointestinal History: Reports: GERD Genitourinary History: Reports: UTI, Recurrent TOWEL FOLDER History: Reports: , Other (See Below) Other TOWEL FOLDER History: HELLP Musculoskeletal History: Reports: Fracture Psychiatric History: Reports: Anxiety, Depression Hematologic History: Reports: Blood Transfusion(s) Oncologic (Cancer) History: Reports: None Dermatologic History: Reports: Cellulitis - Infectious Disease History Infectious Disease History: Reports: Chicken Pox, Influenza - Past Surgical History Female Surgical History: Reports: Tubal Ligation Social & Family History - Family History Family Medical History: Noncontributory HEENT: Reports: Cataract, Impaired Vision Cardiac: Reports: Heart Failure Respiratory: Reports: Other (See Below) Other Respiratory Family Hisory: narcolepsy GI: Reports: Celiac Disease : Reports: Other (See Below) Other Family History: unknown disease Endocrine/Metabolic: Reports: Diabetes, type II Oncologic: Reports: Lung - Caffeine Use Caffeine Use: Reports: Coffee, Soda ED ROS GENERAL - Review of Systems Review Of Systems: ROS reveals no pertinent complaints other than HPI. ED EXAM, SKIN/RASH Exam: See Below (see dictation) Course - Vital Signs Last Recorded V/S: Last Vital Signs Temp 37.9 C 12/07/17 10:09 Pulse 89 07/19/18 10:09 Resp 19 12/07/17 10:09 BP 112/55 L 12/07/17 10:09 Pulse Ox 97 12/07/17 10:09 - Orders/Labs/Meds Orders: Active Orders 24 hr Category Date Time Status CULTURE BLOOD [BC] Stat Lab 12/07/17 11:18 Received CULTURE BLOOD [BC] Stat Lab 12/07/17 11:28 Received UA W/MICROSCOPIC [URIN] Stat Lab 12/07/17 12:45 Ordered Sodium Chloride 0.9% [Saline Flush] Med 12/07/17 10:21 Active 10 ml FLUSH ASDIRECTED PRN Sodium Chloride 0.9% [Saline Flush] Med 12/07/17 10:21 Active 2.5 ml FLUSH ASDIRECTED PRN Blood Culture x2 Reflex Set [OM.PC] Stat Oth 12/07/17 11:06 Ordered Saline Lock Insert [OM.PC] Stat Oth 12/07/17 10:21 Ordered Medication Orders Sodium Chloride (Saline Flush) 10 ml FLUSH ASDIRECTED PRN PRN Reason: Keep Vein Open Last Admin: 12/07/17 11:05 Dose: 10 ml Sodium Chloride (Saline Flush) 2.5 ml FLUSH ASDIRECTED PRN PRN Reason: Keep Vein Open Last Admin: 12/07/17 11:05 Dose: 2.5 ml Labs: Laboratory Tests 12/07/17 12/07/17 Range/Units 10:31 10:31 WBC 15.32 H (4.0-11.0) K/uL RBC 4.63 (4.30-5.90) M/uL Hgb 13.8 (12.0-16.0) g/dL Hct 40.1 (36.0-46.0) % MCV 86.6 (80.0-98.0) fL MCH 29.8 (27.0-32.0) pg MCHC 34.4 (31.0-37.0) g/dL RDW Std Deviation 43.0 (28.0-62.0) fl RDW Coeff of Fern 14 (11.0-15.0) % Plt Count 273 (150-400) K/uL MPV 9.00 (7.40-12.00) fL Neut % (Auto) 93.3 H (48.0-80.0) % Lymph % (Auto) 2.2 L (16.0-40.0) % Leslie % (Auto) 3.8 (0.0-15.0) % Eos % (Auto) 0.6 (0.0-7.0) % Baso % (Auto) 0.1 (0.0-1.5) % Neut # (Auto) 14.3 H (1.4-5.7) K/uL Lymph # (Auto) 0.3 L (0.6-2.4) K/uL Leslie # (Auto) 0.6 (0.0-0.8) K/uL Eos # (Auto) 0.1 (0.0-0.7) K/uL Baso # (Auto) 0.0 (0.0-0.1) K/uL Nucleated RBC % 0.0 /100WBC Nucleated RBCs # 0 K/uL Sodium 134 L (136-145) mmol/L Potassium 4.2 (3.5-5.1) mmol/L Chloride 102 (98-107) mmol/L Carbon Dioxide 23.4 (21.0-32.0) mmol/L BUN 13 (7.0-18.0) mg/dL Creatinine 1.1 H (0.6-1.0) mg/dL Est Cr Clr Drug Dosing 57.28 mL/min Estimated GFR (MDRD) 52.6 ml/min Glucose 105 (74-106) mg/dL Calcium 8.3 L (8.5-10.1) mg/dL Total Bilirubin 0.6 (0.2-1.0) mg/dL AST 19 (15-37) IU/L ALT 34 (14-63) IU/L Alkaline Phosphatase 54 (46-116) U/L Total Protein 6.7 (6.4-8.2) g/dL Albumin 3.3 L (3.4-5.0) g/dL Globulin 3.4 (2.0-3.5) g/dL Albumin/Globulin Ratio 1.0 L (1.3-2.8) Meds: Medications Generic Name Dose Route Start Last Admin Trade Name Freq PRN Reason Stop Dose Admin Sodium Chloride 10 ml 12/07/17 10:21 12/07/17 11:05 Saline Flush FLUSH 10 ml ASDIRECTED PRN Administration Keep Vein Open Sodium Chloride 2.5 ml 12/07/17 10:21 12/07/17 11:05 Saline Flush FLUSH 2.5 ml ASDIRECTED PRN Administration Keep Vein Open Discontinued Medications Generic Name Dose Route Start Last Admin Trade Name Freq PRN Reason Stop Dose Admin Sodium Chloride 1,000 mls @ 999 mls/hr 12/07/17 10:21 12/07/17 11:04 Normal Saline IV 12/07/17 11:21 999 mls/hr STAT ONE Administration Departure - Departure Time of Disposition: 13:08 Disposition: Home, Self-Care 01 Condition: Good Clinical Impression: Cellulitis Qualifiers: Site of cellulitis: extremity Site of cellulitis of extremity: lower extremity Laterality: left Qualified Code(s): L03.116 - Cellulitis of left lower limb - Discharge Information Prescriptions: Levofloxacin 750 mg PO DAILY 10 Days #10 tablet Referrals: PCP,None [Primary Care Provider] - Forms: ED Department Discharge Additional Instructions: The following information is given to patients seen in the emergency department who are being discharged to home. This information is to outline your options for follow-up care. We provide all patients seen in our emergency department with a follow-up referral. The need for follow-up, as well as the timing and circumstances, are variable depending upon the specifics of your emergency department visit. If you don't have a primary care physician on staff, we will provide you with a referral. We always advise you to contact your personal physician following an emergency department visit to inform them of the circumstance of the visit and for follow-up with them and/or the need for any referrals to a consulting specialist. The emergency department will also refer you to a specialist when appropriate. This referral assures that you have the opportunity for follow-up care with a specialist. All of these measure are taken in an effort to provide you with optimal care, which includes your follow-up. Under all circumstances we always encourage you to contact your private physician who remains a resource for coordinating your care. When calling for follow-up care, please make the office aware that this follow-up is from your recent emergency room visit. If for any reason you are refused follow-up, please contact the [facility] Emergency Department at and asked to speak to the emergency department charge nurse. [facility] [address] [place] [address] [facility] [address] [place] [address] #1 Take antibiotic as directed #2 Follow up with primary care provider #3 Return to ED as needed as discussed - My Orders Last 24 Hours: My Active Orders 12/07/17 10:21 Sodium Chloride 0.9% [Saline Flush] 10 ml FLUSH ASDIRECTED PRN Sodium Chloride 0.9% [Saline Flush] 2.5 ml FLUSH ASDIRECTED PRN Saline Lock Insert [OM.PC] Stat 12/07/17 11:06 Blood Culture x2 Reflex Set [OM.PC] Stat 12/07/17 11:18 CULTURE BLOOD [BC] Stat 12/07/17 11:28 CULTURE BLOOD [BC] Stat 12/07/17 12:45 UA W/MICROSCOPIC [URIN] Stat - Assessment/Plan Last 24 Hours: My Active Orders 12/07/17 10:21 Sodium Chloride 0.9% [Saline Flush] 10 ml FLUSH ASDIRECTED PRN Sodium Chloride 0.9% [Saline Flush] 2.5 ml FLUSH ASDIRECTED PRN Saline Lock Insert [OM.PC] Stat 12/07/17 11:06 Blood Culture x2 Reflex Set [OM.PC] Stat 12/07/17 11:18 CULTURE BLOOD [BC] Stat 12/07/17 11:28 CULTURE BLOOD [BC] Stat 12/07/17 12:45 UA W/MICROSCOPIC [URIN] Stat
[2017-12-07] MEDS ORDERED: Sodium Chloride 0.9% 10 ML Syringe FLUSH PRN (10:21)
[2017-12-07] MEDS ORDERED: Sodium Chloride 0.9% 2.5 ML Syringe FLUSH PRN (10:21)
[2017-12-07] MEDS ORDERED: Sodium Chloride 0.9% 1,000 ML IV ONE (10:21)
== END 2017-12-07 13:18 | disposition home or self-care (01) ==
LOC: MW.ED 09:46
DX: L03.116 Cellulitis of left lower limb (principal); Z88.1 Allergy status to other antibiotic agents; Z88.8 Allergy status to other drugs, medicaments and biological substances; Z79.899 Other long term (current) drug therapy
CPT/HCPCS: 36415; 80053; 81001; 85025; 87040; 96360; 99283; J7040